=== PATIENT | female | born 1980 | race Caucasian/White ===

== ENCOUNTER 2017-04-22 21:26 | Emergency (ER) | payer MEDICAID ==
[2017-04-22] MEDS ORDERED: LIDOCAINE-EPINEPH-TETRACAINE 3 ML SYRINGE TOP STA (22:24)
--- NOTE | 2017-04-22 22:25 | ED Physician Documentation ---
PD HPI HEAD INJURY - Stated complaint Stated Complaint: HEAD LACERATION - Chief complaint Chief Complaint: Laceration - History obtained from History obtained from: Patient, Family - History of Present Illness Mechanism of head injury: Fell Where head injury occurred: Home Timing - onset: How many hours ago (1) Pain level max: 5 Pain level now: 1 Location of injury: Front Quality of pain: Aching, Dull Associated symptoms: No: LOC, AMS, Amnesia, Nausea / vomiting, Neck pain, Paresthesias, Seizures, Ear drainage, Nasal drainage Symptoms improve with: Rest Symptoms worsen with: Palpation Contributing factors: No: Anticoagulated, Intoxicated - Additional information Additional information: lacerations to the forehead. Last tetanus was 09/16/13. Patient tripped and fell outside of her house today and struck her head on a shopping cart. No loss of consciousness. No vomiting. Now feels normal. 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 01/22/14 Albuterol Sulfate [Ventolin Hfa] 2 puffs IH Q6H PRN #1 hfa.aer.ad 05/06/15 Fluticasone [Flonase] 1 sprays DEAN BID PRN #1 bottle 05/06/15 Cephalexin [Keflex] 500 mg PO Q6H #28 capsule 04/22/17 - Allergies Allergies/Adverse Reactions: Allergies Allergy/AdvReac Type Severity Reaction Status Date / Time No Known Drug Allergies Allergy Verified 04/22/17 21:49 - Social History Does the pt smoke?: Yes Smoking Status: Current every day smoker Does the pt drink ETOH?: No Does the pt have substance abuse?: Yes - Immunizations Immunizations are current?: Yes Immunizations: TDAP current <10years - POLST Patient has POLST: No PD ED PE NORMAL - Vitals Vital signs reviewed: Yes - General General: Alert and oriented X 3, No acute distress - HEENT HEENT: PERRL, EOMI, Moist mucous membranes, Other (Multiple lacerations to the forehead, the largest is approximately 2 cm, linear vertical on the left side of the forehead. This is clean and subcutaneous. There are several abrasions on the left upper portion of the forehead as well as a small V-shaped laceration approximately 1 cm in length. These appear dirty. 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, No motor deficit, No sensory deficit, Normal speech Eye Opening: Spontaneous Motor: Obeys Commands Verbal: Oriented GCS Score: 15 Results - Vitals Vitals: Vital Signs - 24 hr 04/22/17 04/22/17 21:48 22:58 Temperature 36.7 C 36.8 C Heart Rate 78 72 Respiratory 18 20 Rate Blood Pressure 140/75 H 132/89 H O2 Saturation 100 98 Oxygen O2 Source Room air Procedures - Laceration (location) Forehead Length in cm: 3 Wound type: Linear, Into subcut fat, Clean (vertical laceration is clean, V shaped is dirty) Neurovascular status: Sensory intact, Vascular intact Anesthesia: LET Wound Preparation: Hibiclens, Irrigated copiously NS, Wound explored, To the base, Other (small amount of dirt and debris removed.). No: FB identified, FB removed Skin layer closure: Dermabond, Steri strips Other: Patient tolerated well, No complications, Neurovascular intact, Dressing applied, Tetanus UTD Complexity: Simple PD MEDICAL DECISION MAKING - ED course Complexity details: re-evaluated patient, considered differential, d/w patient, d/w family ED course: Patient is a 36-year-old female presents to the emergency department with multiple lacerations to the forehead. These were cleansed in the emergency department. She does not want sutures, therefore Dermabond and Steri-Strips were utilized with excellent approximation. Will place on oral antibiotics as these were dirty wounds. Warnings of infection and instructions on wound care given at bedside. Also counseled on how to minimize scarring. Patient counseled regarding signs and symptoms for which I believe and urgent re- evaluation would be necessary. Patient with good understanding of and agreement to plan and is comfortable going home at this time This document was made in part using voice recognition software. While efforts are made to proofread this document, sound alike and grammatical errors may occur. No evidence of intracranial hemorrhage or skull fracture. Will hold head CT at this time. Head injury instructions given to family Departure - Departure Disposition: 01 Home, Self Care Clinical Impression: Forehead laceration Qualifiers: Encounter type: initial encounter Qualified Code(s): S01.81XA - Laceration without foreign body of other part of head, initial encounter Condition: Good Instructions: ED Laceration Facial Skin Glue Follow-Up: your,doctor in 10-14 days for wound check. [Other] Prescriptions: Cephalexin [Keflex] 500 mg PO Q6H #28 capsule Comments: Take all antibiotics until gone. Return if you worsen. Keep the wound clean. The Steri-Strips and glue should follow off in approximately 10-14 days. Discharge Date/Time: 04/22/17 23:05
[2017-04-22] MEDS ORDERED: cephALEXin 250 MG CAPSULE PO STA (22:55)
[2017-04-22 22:59] VITALS: BP 132/89
== END 2017-04-22 23:05 | disposition home or self-care (01) ==
LOC: ED 21:26
DX: S01.81XA Laceration without foreign body of other part of head, initial encounter (principal); W01.198A Fall on same level from slipping, tripping and stumbling with subsequent striking against other object, initial encounter; Y92.009 Unspecified place in unspecified non-institutional (private) residence as the place of occurrence of the external cause; I10 Essential (primary) hypertension; E05.90 Thyrotoxicosis, unspecified without thyrotoxic crisis or storm; F17.200 Nicotine dependence, unspecified, uncomplicated
CPT/HCPCS: 12013; 99283; A9270

== ENCOUNTER 2018-12-31 09:58 | Outpatient (CLI) | payer MEDICAID ==
[2019-01-01 11:42] LABS: HEPATITIS C ANTIBODY NON-REACTIVE (NON-REACTIVE)
[2019-01-01 11:43] LABS: HEPATITIS B SURFACE ANTIGEN NON-REACTIVE (NON-REACTIVE)
[2019-01-01 14:56] LABS: HIV AG/AB 4TH GEN NON-REACTIVE (NON-REACTIVE)
[2019-01-02 16:51] LABS: HSV 1 IGG TYPE SPECIFIC AB <0.90 index; HSV 2 IGG TYPE SPECIFIC AB <0.90 index
== END 2018-12-31 09:59 | disposition home or self-care (01) ==
LOC: LAB 09:58
PROVIDERS: ATTEND Obstetrics & Gynecology
DX: Z11.3 Encounter for screening for infections with a predominantly sexual mode of transmission (principal)
CPT/HCPCS: 36415; 81599; 86592; 86695; 86696; 86803; 87340; 87389

== ENCOUNTER 2019-01-17 09:57 | Outpatient (CLI) | payer MEDICAID ==
--- NOTE | 2019-01-17 19:13 | Ultrasound Report ---
Reason: MENORRHAGIA Procedure Date: 01/17/2019 Accession Number: [id number] / [id number] Procedure: US - Pelvic w/Transvaginal CPT Code: FULL RESULT: EXAM: PELVIC ULTRASOUND EXAM DATE: 01/17/2019 10:38 AM. CLINICAL HISTORY: MENORRHAGIA. LMP 10 1719 COMPARISON: None. TECHNIQUE: Realtime transabdominal pelvic scan performed to identify the uterus and adnexa and as an overview of other pelvic structures, followed by transvaginal scan to provide greater detail of the uterus and adnexa, with static image documentation. FINDINGS: Uterus: 9.1 x 4 x 5.1 cm, volume 97.1 cc. Anteverted position. Normal overall size and echotexture. Masses: Anterior intramural fibroid 1 cm in diameter. Posterior subserosal fibroid 1 cm in diameter. Endometrium: 6.1 mm. Normal. Cervix: Unremarkable. Right Ovary: 3.6 x 2 x 2.7 cm, volume 10.2 cc. Normal echotexture and blood flow. Left Ovary: 3.1 x 2.8 x 2 cm, volume 9.1 cc. Normal echotexture and blood flow. Free Fluid: None. Other: None. IMPRESSION: 1. Normal endometrial thickness. 2. Two 1 cm fibroids not affecting the endometrial echo. RADIA
== END 2019-01-17 09:58 | disposition home or self-care (01) ==
LOC: DI 09:57
PROVIDERS: ATTEND Obstetrics & Gynecology
DX: D25.1 Intramural leiomyoma of uterus (principal); D25.2 Subserosal leiomyoma of uterus
CPT/HCPCS: 76830; 76856

== ENCOUNTER 2019-02-06 07:52 | Day surgery (SDC) | payer MEDICAID ==
[~2019-02-06 07:52] MED LIST: CEFAZOLIN SODIUM IN 0.9 % NACL 0 GM/0 ML BAG IV ONE; PHENAZOPYRIDINE 100 MG TABLET PO ONE
[2019-02-06] MEDS ORDERED: LACTATED RINGERS 1,000 ML IV ONE (07:53)
[2019-02-06 08:08] VITALS: BP 143/92
[2019-02-06 08:09] LABS: BILIRUBIN,URINE NEGATIVE (NEGATIVE); GLUCOSE, URINE (UA) NEGATIVE (NEGATIVE); KETONES,URINE (UA) NEGATIVE (NEGATIVE); LEUKOCYTE ESTERASE, URINE NEGATIVE (NEGATIVE); NITRITE,URINE NEGATIVE (NEGATIVE); OCCULT BLOOD,URINE NEGATIVE (NEGATIVE); PROTEIN,URINE NEGATIVE (NEGATIVE); UROBILINOGEN,URINE 0.2 (NORMAL) E.U./dL (NORMAL)
[2019-02-06 08:11] LABS: HCG UR QUAL NEGATIVE
[2019-02-06 08:14] LABS: CLARITY,URINE HAZY (CLEAR); MUCUS,URINE Few Strands; SQUAMOUS EPITHELIAL CELL,UR MOD Squamous (<= Few)
[2019-02-06 08:15] LABS: BACTERIA,URINE Few /HPF (None Seen); RBC,URINE None Seen /HPF (0-5)
--- NOTE | 2019-02-06 08:19 | ANESTHESIA ---
Pre-Anesthesia VS, & Labs - Diagnosis menorrhagia, dysmenorrhea, uterine fibroids - Procedure LAVH with diagnostic cystoscopy, bilateral salpingectomy Vital Signs: Temp Pulse Resp BP Pulse Ox 37 C 125 H 16 143/92 H 909 H 02/06/19 08:06 02/06/19 08:06 02/06/19 08:06 02/06/19 08:06 02/06/19 08:06 Height 5 ft Weight (kg) 48 kg Body Mass Index 22.6 - NPO >8 hours - Is Patient ?: No Home Medications and Allergies Home Medications: Ambulatory Orders No Known Home Medications 01/28/19 No Known Home Medications 01/28/19 Allergies/Adverse Reactions: Allergies Allergy/AdvReac Type Severity Reaction Status Date / Time No Known Drug Allergies Allergy Verified 04/22/17 21:49 Anes History & Medical History - Anesthetic History Anesthesia Complications: reports: No previous complications - Medical History Cardiovascular: reports: Hypertension Pulmonary: reports: None Gastrointestinal: reports: GERD (1-2 times per week) Urinary: reports: Kidney stones (history of kidney stones) Neuro: reports: TIA Musculoskeletal: reports: None Endocrine/Autoimmune: reports: HyPERthyroidism (Patient reports she has untreated hyperthyroidism) Blood Disorders: reports: None Skin: reports: None Smoking Status: Current every day smoker (1 pack per day 20 years) Psychosocial: reports: Depression, Anxiety, Cannabis (Daily use, smokes), Other (PTSD) - Surgical History Gynecologic: Tubal ligation Exam General: Alert, Oriented x3, Cooperative, No acute distress Dental: WNL Mouth Openin Fingerbreadth Neck Mobility: Normal Mallampati classification: I Thyromental Distance: greater than 6 cm Respiratory: Lungs clear, Normal breath sounds, No respiratory distress, No accessory muscle use Cardiovascular: Regular rate (tachycardic), Normal S1, Normal S2, No murmurs Mental/Cognitive Status: Alert/Oriented X3, Normal for patient Plan Anesthesia Type: General Consent for Procedure(s) Verified and Reviewed: Yes Code Status: Attempt Resuscitation ASA classification: 2-Mild systemic disease Is this case an emergency?: No
[2019-02-06 08:38] LABS: BASOPHILS % (AUTO) 0.2 %; EOSINOPHILS % (AUTO) 0.1 %; HGB - HEMOGLOBIN 12.1 g/dL (12.0-16.0); LYMPHOCYTES % (AUTO) 12.4 %; MEAN CORPUSCULAR HEMOGLOBIN 29.4 pg (27.0-31.0); MEAN CORPUSCULAR HGB CONC 34.6 g/dL (32.0-36.0); MEAN CORPUSCULAR VOLUME 85.2 fL (81.0-99.0); MEAN PLATELET VOLUME 10.2 fL (7.9-10.8); MONOCYTES # (AUTO) 0.4 10^3/uL (0.0-1.0); MONOCYTES % (AUTO) 4.3 %; NEUTROPHILS # (AUTO) 6.9 10^3/uL (1.5-6.6); NEUTROPHILS % (AUTO) 82.8 %; PLT - PLATELET COUNT 209 10^3/uL (130-450); RED BLOOD COUNT 4.11 10^6/uL (4.20-5.40); WHITE BLOOD COUNT 8.3 x10^3/uL (4.8-10.8)
[2019-02-06] MEDS ORDERED: LIDOCAINE MPF 2%-EPI 1:200000 20 ML VIAL ONE (08:44)
[2019-02-06] MEDS ORDERED: METHYLENE BLUE 0.5% 50 MG/10 ML AMPULE ONE (08:45)
[2019-02-06] MEDS ORDERED: BUPIVACAINE 0.5% PF 30 ML VIAL ONE (08:45)
[2019-02-06] MEDS ORDERED: FUROSEMIDE 40 MG/4 ML VIAL ONE (08:51)
[2019-02-06 10:41] LABS: FREE T4 (FREE THYROXINE) 1.52 ng/dL (0.58-1.64)
[2019-02-06 10:45] LABS: TOTAL T3 1.99 ng/mL (0.87-1.78)
[2019-02-06 10:58] LABS: ALBUMIN 4.2 g/dL (3.2-5.5); ALBUMIN/GLOBULIN RATIO 1.4 (1.0-2.2); BILIRUBIN,TOTAL 0.6 mg/dL (0.2-1.0); CREATININE 0.8 mg/dL (0.4-1.0); TOTAL PROTEIN 7.1 g/dL (6.7-8.2)
== END 2019-02-06 07:53 | disposition home or self-care (01) ==
LOC: SDS 07:52
PROVIDERS: ATTEND Obstetrics & Gynecology
PROC: 0UT9FZZ Resection of Uterus, Via Natural or Artificial Opening With Percutaneous Endoscopic Assistance (ICD-10-PCS; principal; 2019-02-06)
PROC: 0UT7FZZ Resection of Bilateral Fallopian Tubes, Via Natural or Artificial Opening With Percutaneous Endoscopic Assistance (ICD-10-PCS; 2019-02-06)
DX: N92.0 Excessive and frequent menstruation with regular cycle (principal); N94.6 Dysmenorrhea, unspecified; D25.9 Leiomyoma of uterus, unspecified; Z53.09 Procedure and treatment not carried out because of other contraindication
CPT/HCPCS: 36415; 58552; 80053; 81001; 81025; 83970; 84439; 84443; 84480; 85025; 86850; 86900; 86901; 93005; A9270; J7120; 87086

== ENCOUNTER 2019-02-15 12:15 | Outpatient (CLI) | payer MEDICAID ==
--- NOTE | 2019-02-18 06:43 | Ultrasound Report ---
Reason: HYPERTHYROIDISM, THYROID STIMULATING HORMONE ABN Procedure Date: 02/15/2019 Accession Number: [id number] / [id number] Procedure: US - Head or Neck Soft Tissue CPT Code: Final Report FULL RESULT: EXAM: THYROID ULTRASOUND EXAM DATE: 02/15/2019 01:28 PM. CLINICAL HISTORY: HYPERTHYROIDISM, THYROID STIMULATING HORMONE ABN. COMPARISON: None. TECHNIQUE: Real time sonographic imaging of the thyroid was performed by the rental clerk. Multiple employer relations representative static images were saved for review. FINDINGS: THYROID GLAND: Right Lobe: 6.0 x 1.7 x 2.8 cm, volume 14.6 cc. Normal background echotexture. Right Lobe Nodules: 3.6 x 1.1 x 2.1 cm solid nodule in the midportion of the right lobe with cystic component and 4 mm linear calcification with posterior acoustic shadowing. Increased vascularity is seen within the solid portions of the nodule. Left Lobe: 4.7 x 0.9 x 1.2 cm, volume 2.7 cc. Normal background echotexture. Left Lobe Nodules: None. Isthmus: 0.4 cm AP. Isthmic Nodules: None. LYMPH NODES: No adenopathy demonstrated in the central or lateral compartment. OTHER: None. IMPRESSION: Large solid hypervascular nodule in the right thyroid lobe with internal cystic component and large linear calcification measuring up to 3.6 cm. Recommend FNA. Management recommendations are based on 2015 [place] [employer] Management Guidelines for Adult Patients with Thyroid Nodules and Differentiated Thyroid Cancer. RADIA
== END 2019-02-15 12:16 | disposition home or self-care (01) ==
LOC: DI 12:15
PROVIDERS: ATTEND Family Medicine
DX: E04.1 Nontoxic single thyroid nodule (principal); E05.90 Thyrotoxicosis, unspecified without thyrotoxic crisis or storm
CPT/HCPCS: 76536

== ENCOUNTER 2019-04-03 11:14 | Outpatient (CLI) | payer MEDICAID ==
[2019-04-03] MEDS ORDERED: BUFFERED LIDOCAINE 10 ML SYRINGE ONE (11:56)
--- NOTE | 2019-04-03 15:01 | Ultrasound Report ---
Reason: RT THYROID NODULE Procedure Date: 04/03/2019 Accession Number: [id number] / [id number] Procedure: US - FNA Bx w/US Gnd les CPT Code: 87687 Final Report FULL RESULT: EXAM: Thyroid Fine Needle Aspiration EXAM DATE: 04/03/2019 01:10 PM. CLINICAL HISTORY: Solitary right thyroid nodule. FNA recommended. COMPARISON: HEAD OR NECK SOFT TISSUE 02/15/2019 12:50 PM. TECHNIQUE: The risks, benefits, and alternatives of the procedure were discussed with the patient. All questions were answered. Written and verbal consent were obtained. A site was marked over the right nodule (3.6 cm) in question under live sonographic evaluation, then subsequently prepped and draped in a sterile manner. Local anesthesia was performed with 1% lidocaine. Four 22 gauge fine-needle aspirates/passes were performed through the nodule in question, then passed to the underwriting clerk for preparation. Estimated blood loss was 0 mL. Sonographic images demonstrate needle placement within nodule in question. The tissue was submitted to cytology for evaluation. Final results pending at this time. FINDINGS IMPRESSION: Technically successful FNA right of the thyroid nodule. Cytological results pending at this time. RADIA
[2019-04-03] MEDS ORDERED: BUFFERED LIDOCAINE 10 ML SYRINGE IU ONE (17:05)
== END 2019-04-03 11:15 | disposition home or self-care (01) ==
LOC: DI 11:14
PROVIDERS: ATTEND Surgery
DX: E04.1 Nontoxic single thyroid nodule (principal)
CPT/HCPCS: 10005

== ENCOUNTER 2019-05-06 12:31 | Emergency (ER) | payer MEDICAID ==
--- NOTE | 2019-05-06 15:54 | ED Physician Documentation ---
History of Present Illness - Stated complaint Stated Complaint: RT FINGER LAC - Chief complaint Chief Complaint: Laceration - History obtained from History obtained from: Patient - History of Present Illness Timing: Today Pain level max: 0 Pain level now: 0 - Additonal information Additional information: Laceration to the right ring finger. She states that she was cleaning a sink full of dirty dishes when a steak knife stabbed her in the hand. Tetanus shot is up-to-date. Patient is right-handed. Nothing makes it better or worse. Review of Systems Constitutional: denies: Fever Neurologic: denies: Focal weakness, Numbness PD PAST MEDICAL HISTORY - Past Medical History Past Medical History: Yes Cardiovascular: Hypertension Respiratory: None Neuro: TIA Endocrine/Autoimmune: HyPERthyroidism GI: GERD GROCERY SUPERVISOR: Other : Kidney stones HEENT: None Psych: Depression, Anxiety, Panic attacks, Post traumatic stress disorder Musculoskeletal: None Derm: None - Past Surgical History Past Surgical History: Yes /GROCERY SUPERVISOR: Tubal ligation - Present Medications Home Medications: Ambulatory Orders Medication Instructions Recorded Confirmed Sertraline [Zoloft] 50 mg PO DAILY 05/06/19 05/06/19 - Allergies Allergies/Adverse Reactions: Allergies Allergy/AdvReac Type Severity Reaction Status Date / Time No Known Drug Allergies Allergy Verified 05/06/19 12:37 - Social History Does the pt smoke?: Yes Smoking Status: Current every day smoker Does the pt drink ETOH?: No Does the pt have substance abuse?: Yes - Immunizations Immunizations are current?: Yes Immunizations: TDAP current <10years - POLST Patient has POLST: No PD ED PE NORMAL - Vitals Vital signs reviewed: Yes - General General: Alert and oriented X 3, No acute distress - Derm Derm: Warm and dry - Extremities Extremities: Other (Right hand - 2 small avulsions to the radial aspects of the right fourth digit. No active bleeding.) - Neuro Neuro: Alert and oriented X 3 Results - Vitals Vitals: Vital Signs - 24 hr 05/06/19 12:32 Temperature 37.2 C Heart Rate 73 Respiratory 18 Rate Blood Pressure 144/89 H O2 Saturation 99 Oxygen O2 Source Room air Procedures - Laceration (location) Right ring finger Length in cm: 1 Wound type: Linear, Flap, Superficial Neurovascular status: Sensory intact, Motor intact, Vascular intact Wound Preparation: Irrigated copiously NS Skin layer closure: Dermabond Other: Patient tolerated well, No complications, Neurovascular intact Complexity: Simple PD MEDICAL DECISION MAKING - ED course Complexity details: considered differential, d/w patient ED course: 2 small superficial avulsions to the right ring finger. The skin was glued back into place as a biological dressing with Dermabond. Too thin to hold sutures. Tolerated well. Warnings of infection and instructions on wound care given at bedside. Also counseled on how to minimize scarring. Patient was counseled the skin will likely fall off and . Patient counseled regarding signs and symptoms for which I believe and urgent re-evaluation would be necessary. Patient with good understanding of and agreement to plan and is comfortable going home at this time This document was made in part using voice recognition software. While efforts are made to proofread this document, sound alike and grammatical errors may occur. Departure - Departure Disposition: 01 Home, Self Care Clinical Impression: Finger laceration Qualifiers: Encounter type: initial encounter Finger: ring finger Damage to nail status: without damage Foreign body presence: without foreign body Laterality: right Qualified Code(s): S61.214A - Laceration without foreign body of right ring finger without damage to nail, initial encounter Condition: Good Instructions: ED Laceration Hand Follow-Up: Dylon Scott MD [Primary Care Provider] - Within 1 week Comments: Follow-up with your doctor in 1 week for a wound check. Return if you notice redness, swelling or drainage from the wound.
[2019-05-06 16:15] VITALS: BP 149/85
== END 2019-05-06 16:16 | disposition home or self-care (01) ==
LOC: ED 12:31
DX: S61.214A Laceration without foreign body of right ring finger without damage to nail, initial encounter (principal); W26.0XXA Contact with knife, initial encounter; Y93.G1 Activity, food preparation and clean up; I10 Essential (primary) hypertension; F17.200 Nicotine dependence, unspecified, uncomplicated
CPT/HCPCS: 12001; 99282; 99283

== ENCOUNTER 2019-05-07 09:13 | Outpatient (CLI) | payer MEDICAID ==
--- NOTE | 2019-05-08 17:17 | Nuclear Medicine Report ---
Reason: HYPERTHYROIDISM Procedure Date: 05/08/2019 Accession Number: [id number] / [id number] Procedure: NM - Thyroid Imaging and Uptake CPT Code: 95074 Addended Final Report FULL RESULT: EXAM: THYROID UPTAKE AND SCAN EXAM DATE: 05/08/2019 10:56 AM. CLINICAL HISTORY: HYPERTHYROIDISM. COMPARISON: HEAD OR NECK SOFT TISSUE 02/15/2019 12:50 PM. TECHNIQUE: Patient was administered 390 microcuries of I-123 orally and returned at 4 and 24 hours for thyroid uptake measurement. At 4 hours after radioiodine ingestion, anterior gamma camera images of the patient's neck were obtained from 3 standard angles. FINDINGS: Uptake: 4 Hour: 26.2% (Normal 4-18%). 24 Hour: 50.7% (Normal 6-32%). Thyroid Scan: There is a dominant hot nodule on the right with suppression of tracer uptake in the left thyroid lobe. IMPRESSION: 1. Normal 4 and 24-hour uptake. 2. Dominant hyperfunctioning right nodule. RADIA ADDENDUM: 05/09/19 15:19 Radiotracer uptake is greater than normal
== END 2019-05-07 09:14 | disposition home or self-care (01) ==
LOC: DI 09:13
PROVIDERS: ATTEND Internal Medicine Gastroenterology
DX: E05.90 Thyrotoxicosis, unspecified without thyrotoxic crisis or storm (principal); E04.1 Nontoxic single thyroid nodule
CPT/HCPCS: 78014

== ENCOUNTER 2019-12-03 08:00 | Outpatient (CLI) | payer MEDICAID ==
[2019-12-03 18:30] LABS: ALBUMIN 4.3 g/dL (3.2-5.5); ALBUMIN/GLOBULIN RATIO 1.4 (1.0-2.2); ALKALINE PHOSPHATASE 50 IU/L (42-121); ALT ALANINE AMINOTRANSFERASE < 10 IU/L (10-60); AST ASPARTATE AMINOTRANSFERASE 15 IU/L (10-42); BILIRUBIN,TOTAL 0.5 mg/dL (0.2-1.0); BUN - BLOOD UREA NITROGEN 15 mg/dL (6-20); CALCIUM 8.8 mg/dL (8.5-10.3); CARBON DIOXIDE - CO2 26 mmol/L (21-32); CHLORIDE 103 mmol/L (101-111); CREATININE 0.9 mg/dL (0.4-1.0); GLUCOSE 91 mg/dL (70-100); SODIUM 138 mmol/L (135-145); TOTAL PROTEIN 7.4 g/dL (6.7-8.2)
[2019-12-03 19:46] LABS: THYROID STIMULATING HORMONE 0.3 uIU/mL (0.34-5.60)
[2019-12-03 19:48] LABS: FREE T4 (FREE THYROXINE) 0.87 ng/dL (0.58-1.64)
== END 2019-12-03 23:59 | disposition home or self-care (01) ==
LOC: LAB.WCP 08:00
PROVIDERS: ATTEND Family Medicine
DX: E04.9 Nontoxic goiter, unspecified (principal)
CPT/HCPCS: 36415; 80053; 84439; 84443

== ENCOUNTER 2022-02-10 08:00 | Outpatient (CLI) | payer MEDICAID ==
[2022-02-10 19:15] LABS: CHLAMYDIA TRACHOMATIS DNA NEGATIVE (NEGATIVE); NEISSERIA GONORRHOEAE DNA NEGATIVE (NEGATIVE)
[2022-02-10 20:58] LABS: BACTERIAL VAGINOSIS DNA POSITIVE (NEGATIVE); CANDIDA GLABRATA DNA NEGATIVE (NEGATIVE); CANDIDA GROUP DNA NEGATIVE (NEGATIVE); CANDIDA KRUSEI DNA NEGATIVE (NEGATIVE); TRICHOMONAS VAGINALIS DNA NEGATIVE (NEGATIVE)
== END 2022-02-10 23:59 | disposition home or self-care (01) ==
LOC: LAB.WC 08:00
PROVIDERS: ATTEND Nurse Practitioner
DX: N64.3 Galactorrhea not associated with childbirth (principal); Z11.3 Encounter for screening for infections with a predominantly sexual mode of transmission
CPT/HCPCS: 36415; 81514; 84146; 86592; 86803; 87340; 87389; 87491; 87591; 87661

== ENCOUNTER 2022-02-10 13:55 | Outpatient (CLI) | payer MEDICAID ==
[2022-02-11 04:08] LABS: HBsAG SCREEN Negative (Negative); HCV AB <0.1 s/co ratio (0.0-0.9)
[2022-02-11 08:10] LABS: RPR Non Reactive (Non Reactive)
[2022-02-11 09:09] LABS: HIV SCREEN 4TH GENERATION Non Reactive (Non Reactive)
== END 2022-02-10 13:56 | disposition home or self-care (01) ==
LOC: LAB 13:55
PROVIDERS: ATTEND Nurse Practitioner
DX: N64.3 Galactorrhea not associated with childbirth (principal); Z11.3 Encounter for screening for infections with a predominantly sexual mode of transmission
CPT/HCPCS: 36415; 84146; 86592; 86803; 87340; 87389

== ENCOUNTER 2022-06-09 12:00 | Outpatient (CLI) | payer MEDICAID ==
[2022-06-09 12:15] LABS: BASOPHILS % (AUTO) 0.6 %; EOSINOPHILS # (AUTO) 0.1 10^3/uL (0.0-0.7); EOSINOPHILS % (AUTO) 1.7 %; HCT - HEMATOCRIT 36.6 % (37.0-47.0); HGB - HEMOGLOBIN 11.7 g/dL (12.0-16.0); LYMPHOCYTES # (AUTO) 2.1 10^3/uL (1.5-3.5); MEAN CORPUSCULAR HEMOGLOBIN 26.4 pg (27.0-31.0); MEAN CORPUSCULAR VOLUME 82.6 fL (81.0-99.0); MEAN PLATELET VOLUME 10.5 fL (7.9-10.8); MONOCYTES # (AUTO) 0.6 10^3/uL (0.0-1.0); MONOCYTES % (AUTO) 9.3 %; NEUTROPHILS # (AUTO) 3.6 10^3/uL (1.5-6.6); NEUTROPHILS % (AUTO) 55.1 %; PLT - PLATELET COUNT 214 10^3/uL (130-450); RED BLOOD COUNT 4.43 10^6/uL (4.20-5.40); RED CELL DISTRIBUTION WIDTH 14.3 % (12.0-15.0); WHITE BLOOD COUNT 6.5 x10^3/uL (4.8-10.8)
[2022-06-09 12:28] LABS: ALBUMIN 4.2 g/dL (3.2-5.5); ALBUMIN/GLOBULIN RATIO 1.2 (1.0-2.2); BILIRUBIN,TOTAL 0.5 mg/dL (0.2-1.0); CALCIUM 8.8 mg/dL (8.5-10.3); CREATININE 0.9 mg/dL (0.4-1.0); POTASSIUM 4.1 mmol/L (3.5-5.0); TOTAL PROTEIN 7.8 g/dL (6.7-8.2)
[2022-06-09 15:50] LABS: FREE T3 2.72 pg/mL (2.5-3.9); THYROID STIMULATING HORMONE 1.79 uIU/mL (0.34-5.60)
[2022-06-09 15:51] LABS: FREE T4 (FREE THYROXINE) 0.68 ng/dL (0.58-1.64)
== END 2022-06-09 12:01 | disposition home or self-care (01) ==
LOC: LAB 12:00
PROVIDERS: ATTEND Physician Assistant
DX: E05.90 Thyrotoxicosis, unspecified without thyrotoxic crisis or storm (principal)
CPT/HCPCS: 36415; 80053; 84439; 84443; 84481; 85025

== ENCOUNTER 2023-02-01 09:30 | Outpatient (CLI) | payer MEDICAID ==
[2023-02-01 09:43] LABS: HCT - HEMATOCRIT 38.7 % (37.0-47.0); HGB - HEMOGLOBIN 11.9 g/dL (12.0-16.0); MEAN CORPUSCULAR HEMOGLOBIN 26.7 pg (27.0-31.0); MEAN CORPUSCULAR HGB CONC 30.7 g/dL (32.0-36.0); MEAN PLATELET VOLUME 10.1 fL (7.9-10.8); RED BLOOD COUNT 4.45 10^6/uL (4.20-5.40); RED CELL DISTRIBUTION WIDTH 14.2 % (12.0-15.0); WHITE BLOOD COUNT 8.8 x10^3/uL (4.8-10.8)
[2023-02-01 10:23] LABS: FERRITIN 5.4 ng/mL (11.0-306.8)
[2023-02-01 10:52] LABS: ESTIMATED AVERAGE GLUCOSE 108 mg/dL (70-100); HEMOGLOBIN A1c% 5.4 % (4.27-6.07)
== END 2023-02-01 09:31 | disposition home or self-care (01) ==
LOC: LAB 09:30
PROVIDERS: ATTEND Nurse Practitioner
DX: N93.9 Abnormal uterine and vaginal bleeding, unspecified (principal)
CPT/HCPCS: 36415; 82728; 83001; 83002; 83036; 85027

== ENCOUNTER 2023-02-13 10:33 | Outpatient (CLI) | payer MEDICAID ==
--- NOTE | 2023-02-13 18:15 | Ultrasound Report ---
PROCEDURE: Pelvic w/Transvaginal INDICATIONS: AUB TECHNIQUE: Transabdominal/transvaginal ultrasound of the pelvis was obtained. Endovaginal scanning wa s necessary due to incomplete visualization of the adnexal and endometrial structures by transabdomin al scanning. COMPARISON: 01/17/2019 FINDINGS: Uterine size: Uterus measures 1.9 x 4.8 x 5.3 cm, and is anteverted. Myometrium: The myometrium is heterogenous left anterior intramural fibroid measures 1.7 x 1.8 x 1. 6 cm, previously 1.1 x 0.9 x 0.9 centimeters Endometrium: The endometrium measures 4 mm in combined thickness. Right ovary: The right ovary measures 2.6 x 2 or 3 x 2.0 cm. Calculated ovarian volume 6.2 cc. Dom inant follicle measures 1.7 cm Left ovary: The left ovary measures 2.0 x 1.8 x 1.8 cm. Calculated ovarian volume 3.3 cc. Other: No pathologic free abdominal or pelvic fluid. IMPRESSION: Left anterior 1.8 cm fibroid is slightly larger than the prior exam Reviewed by: Ashu Garcia MD on 02/13/2023 5:14 PM AKST Approved by: Ashu Garcia MD on 02/13/2023 5:14 PM [place] Station ID: [id number]
== END 2023-02-13 10:34 | disposition home or self-care (01) ==
LOC: DI 10:33
PROVIDERS: ATTEND Nurse Practitioner
DX: D25.1 Intramural leiomyoma of uterus (principal)

== ENCOUNTER 2023-05-09 09:52 | Outpatient (CLI) | payer MEDICAID ==
[2023-05-09 12:23] LABS: BASOPHILS % (AUTO) 0.7 %; EOSINOPHILS # (AUTO) 0.1 10^3/uL (0.0-0.7); EOSINOPHILS % (AUTO) 1.3 %; HGB - HEMOGLOBIN 13.7 g/dL (12.0-16.0); LYMPHOCYTES # (AUTO) 1.5 10^3/uL (1.5-3.5); LYMPHOCYTES % (AUTO) 24.9 %; MEAN CORPUSCULAR HEMOGLOBIN 27.9 pg (27.0-31.0); MEAN CORPUSCULAR HGB CONC 31.9 g/dL (32.0-36.0); MEAN CORPUSCULAR VOLUME 87.6 fL (81.0-99.0); MEAN PLATELET VOLUME 10.9 fL (7.9-10.8); MONOCYTES # (AUTO) 0.4 10^3/uL (0.0-1.0); MONOCYTES % (AUTO) 5.9 %; NEUTROPHILS # (AUTO) 4.1 10^3/uL (1.5-6.6); NEUTROPHILS % (AUTO) 66.9 %; PLT - PLATELET COUNT 284 10^3/uL (130-450); RED BLOOD COUNT 4.91 10^6/uL (4.20-5.40); RED CELL DISTRIBUTION WIDTH 13.2 % (12.0-15.0); WHITE BLOOD COUNT 6.2 x10^3/uL (4.8-10.8)
[2023-05-09 12:54] LABS: ALBUMIN 4.7 g/dL (3.2-5.5); ALBUMIN/GLOBULIN RATIO 1.6 (1.0-2.2); BILIRUBIN,TOTAL 0.4 mg/dL (0.2-1.0); CALCIUM 9.7 mg/dL (8.5-10.3); POTASSIUM 4.1 mmol/L (3.5-4.5); TOTAL PROTEIN 7.7 g/dL (6.4-8.9)
[2023-05-09 13:00] LABS: THYROID STIMULATING HORMONE 1.49 uIU/mL (0.34-5.60)
== END 2023-05-09 09:53 | disposition home or self-care (01) ==
LOC: LAB.N 09:52
PROVIDERS: ATTEND Physician Assistant
DX: E05.10 Thyrotoxicosis with toxic single thyroid nodule without thyrotoxic crisis or storm (principal); F17.200 Nicotine dependence, unspecified, uncomplicated; R03.0 Elevated blood-pressure reading, without diagnosis of hypertension
CPT/HCPCS: 36415; 80053; 84439; 84443; 85025